=== PATIENT | male | born 1970 | race Caucasian/White ===

== ENCOUNTER → 2018-07-29 | Outpatient (REF) | LOC: ZLAB.WCH 17:23 | DX: Z01.89 Encounter for other specified special examinations (principal) | CPT/HCPCS: G0103 ==

== ENCOUNTER → 2018-08-15 | Outpatient (REF) ==
[2018-08-15 16:13] LABS: IRON,SERUM 101 ug/dL (35-150)
[2018-08-15 16:23] LABS: TOTAL IRON BINDING CAPACITY 328 ug/dL (261-462)
[2018-08-15 16:48] LABS: FERRITIN 164 ng/mL (18-464)
[2018-08-16 00:34] LABS: C-REACTIVE PROTEIN < 0.5 mg/dL (0.0-0.9)
== END ==
LOC: ZLAB.WCH 15:20
PROVIDERS: Internal Medicine
DX: Z01.89 Encounter for other specified special examinations (principal)